=== PATIENT | female | born 1985 | race African-American/Black ===

== ENCOUNTER 2016-06-26 13:27 | Emergency (ER) | payer OTHER ==
[~2016-06-26 13:27] MED LIST: ARIXTRA7.5 MG/0.6 SQ; BENTYL20 M1 PO; DICYCLOMINE HCL20 MG PO; FIORICET 50-321 EACH PO; FLEXERIL PO; IBUPROFEN PO; KEFLEX500 MG PO; MOTRIN400 MG PO; NAPROXEN PO; NO MEDICATIONS; PHENERGAN PO; PROTONIX PO; ULTRAM PO
[2016-06-26 14:29] LABS: INFLUENZA A NEG (NEG); INFLUENZA B NEG (NEG)
== END 2016-06-26 15:10 | disposition home or self-care (01) ==
LOC: CFTX 13:27
PROVIDERS: Nurse Practitioner Family
DX: J02.9 Acute pharyngitis, unspecified (principal)
CPT/HCPCS: 87651; 87804; 99283